=== PATIENT | female | born 1945 | race Caucasian/White ===

== ENCOUNTER 2016-10-30 15:06 | Outpatient (CLI) | payer OTHER, MEDICARE ==
--- NOTE | 2016-10-30 17:02 | DIAGNOSTIC IMAGING REPORT ---
PROCEDURE: US COMPLETE PELVIC W/TRANSVAG INDICATION: PELVIC PAIN TECHNIQUE: Transabdominal and endovaginal nevarez scale and color Doppler sonographic images of the female pelvis were obtained. COMPARISON: None. FINDINGS: TRANSABDOMINAL SCANS: The uterus is of normal size 5.8 x 4.8 x 4.1 cm Kidneys are normal. TRANSVAGINAL SCANS: The uterus is anteverted. Myometrium contains a 16 mm fibroid that is displacing the endometrial lining. The endometrium measures 6.4 mm. Right ovary is normal measuring 1.5 x 1.2 x 1.2 cm The left ovary is normal measuring 2.4 x 1.0 x 1.7 cm IMPRESSION: 1. 16 mm fibroid. 2. Thick endometrium measuring 6.4 mm.
== END 2016-10-30 23:00 ==
LOC: US SRH 15:06
DX: N93.9 Abnormal uterine and vaginal bleeding, unspecified (principal); Z78.0 Asymptomatic menopausal state; D25.9 Leiomyoma of uterus, unspecified; R93.8 Abnormal findings on diagnostic imaging of other specified body structures